=== PATIENT | male | born 1935 | race African-American/Black ===

== ENCOUNTER 2021-12-19 19:59 | Emergency (ER) | payer OTHER, BC ==
[~2021-12-19] VITALS: Ht 177.8 cm; Wt 59.9 kg
[2021-12-19 22:40] LABS: BASOPHILS 0.8 % (0.0-2.0); HEMOGLOBIN 8.6 gm/dL (14.0-18.0); LYMPHOCYTES 19.4 % (24.0-44.0); MCH 31.9 pg (26.0-34.0); MCHC 34.3 g/dL (28.0-37.0); MCV 93.2 fL (80.0-100.0); MONOCYTES 6.3 % (1.0-8.0); PLATELET COUNT 142 thou/uL (150-400); POLYS 73.5 % (36.0-66.0); RBC 2.68 mil/uL (4.50-6.00); RDW 19.8 % (10.5-14.5); WBC 6.8 thou/uL (4.0-11.0)
[2021-12-19 22:43] LABS: CALCIUM 7.6 mg/dL (8.5-10.1); CREATININE 1.3 mg/dL (0.7-1.3); POTASSIUM 4.7 mmol/L (3.5-5.1)
[2021-12-19 22:49] LABS: ALBUMIN 2.2 g/dL (3.4-5.0); TOTAL BILIRUBIN 0.4 mg/dL (0.2-1.0); TOTAL PROTEIN 6.4 g/dL (6.4-8.2)
[2021-12-19 22:59] VITALS: BP 138/72
--- NOTE | 2021-12-20 09:54 | EKG ---
[address] [place] [address] ELECTROCARDIOGRAM REPORT Name: LAUREN RAMIREZ [id number] Admission: 12/19/21 Attend Phys: Discharge: 12/19/21 Date of : [birth year] Report #: [id number] [facility] ED Test Date: 2021-12-19 Test Time: 20:16:45 Pat Name: LAUREN RAMIREZ Department: Room: Gender: M Electroformer: : 1935 Requested By: Clayton Escalante Order Number: [id number] MD: Dk Nolen Measurements Intervals [place] Rate: 69 P: -66 NE: 234 QRS: -10 QRSD: 98 T: 169 QT: 453 QTc: 486 Interpretive Statements Sinus or ectopic atrial rhythm Atrial premature complex Prolonged NE interval Borderline low voltage, extremity leads Abnormal T, consider ischemia, lateral leads No previous ECG available for comparison Electronically Signed On 12-20-2021 9:54:26 HOME [facility]ISITS NURSE by Dk Nolen [email or web address] <ELECTRONICALLY SIGNED> By: Dk Nolen MD 12/20/21 0954 15 15 Dk Nolen MD /TANNER
== END 2021-12-19 22:53 | disposition short-term general hospital (02) ==
LOC: ER 19:59
PROVIDERS: Emergency Medicine
DX: S12.400A Unspecified displaced fracture of fifth cervical vertebra, initial encounter for closed fracture (principal); S02.2XXA Fracture of nasal bones, initial encounter for closed fracture; F03.90 Unspecified dementia, unspecified severity, without behavioral disturbance, psychotic disturbance, mood disturbance, and anxiety; I48.91 Unspecified atrial fibrillation; Z95.0 Presence of cardiac pacemaker; W18.00XA Striking against unspecified object with subsequent fall, initial encounter; Y93.89 Activity, other specified; Y92.89 Other specified places as the place of occurrence of the external cause; Y99.8 Other external cause status